=== PATIENT | female | born 1965 | race Caucasian/White ===

== ENCOUNTER 2017-11-30 09:19 | Observation (INO) ==
[2017-11-30] MEDS ORDERED: Ondansetron 4 MG/2 ML VIAL IVP PRN (13:54)
[2017-11-30] MEDS ORDERED: *HR* Promethazine 25 MG/ML VIAL IVP PRN (13:54)
[2017-11-30] MEDS ORDERED: *HR* HYDROcodone/Acet 5/325 mg TABLET PO PRN (13:54)
[2017-11-30] MEDS ORDERED: Naloxone 0.4 MG/ML INJ IVP PRN (13:54)
--- NOTE | 2017-11-30 16:03 | Internal Med History&Physical ---
Date of Encounter: 11/30/17 Time of Encounter: 13:00 Internal Medicine - H&P: HPI Chief complaint: Chest pain Admitted From: Emergency Dept Plans for Post Hospital Care: Home History of present illness: Ms. Andrews is a 52 year old female with known past medical history of GERD, chronic tobacco dependent and anxiety who presented to [place] emergency room with burning sensation her epigastric as well as left chest wall region since this morning. Patient stated that chest pain improved with Nitro. She denied of any previous heart problems/cardiac workup. Patient was sent to our hospital for further evaluation and possible stress test. When I examined the patient she is alert, awake, oriented X3. She denied of any more active chest pain now. Patient did mention father had a TN when he was in his 30s Past Med Surg Social Fam HX - Past Medical History Medical history: GERD, kidney stones Additional medical history: Heart murmur as a child Psychiatric history: anxiety - Past Surgical History Surgical History: appendectomy, , cholecystectomy Additional surgical history: Lithotripsy at least 5 times - Social History Smoking Status: Current every day smoker Packs per day: 1.5 Smokeless Tobacco Status: No Alcohol use: none Drug use: none - Family History Father Living Status: Age at : 53 Cause of : Cancer Hx Family Cardiac Disorders: Yes (First TN in 30s) Hx Family Respiratory Disorders: No Hx Family Cancer: Yes (Colon) Hx Family GI Disorders: No Hx Family Genitourinary Disorders: No Hx Family Endocrine Disorder: No Hx Family Musculoskeletal Disorders: No Internal Medicine - H&P: Meds Omeprazole [PriLOSEC] 20 mg PO DAILY 11/30/17 [History] 3 Allergy/AdvReac Type Severity Reaction Status Date / Time tramadol Allergy Nausea Verified 07/11/15 18:38 All Systems PM: A 10-system review of systems was performed and is negative for pertinent findings except as documented above in the HPI. Review of systems: All the systems are reviewed everything is benign except the systems and symptoms I mentioned in the history of present illness - Constitutional Vitals: Temp Pulse Resp BP Pulse Ox 98.0 F 54 17 121/77 95 11/30/17 14:56 11/30/17 14:56 11/30/17 14:56 11/30/17 14:56 11/30/17 14:56 General appearance: Present: A&O X 3, no acute distress, answers questions appropriately - Head Head exam: Present: atraumatic, normal inspection - Neck Neck exam general surgery: Present: supple - Respiratory Respiratory exam: Present: decreased breath sounds. Absent: rales, respiratory distress, rhonchi, wheezes - Cardiovascular Cardiovascular exam: Present: RRR, +S1, +S2. Absent: diastolic murmur, gallop, rubs, systolic murmur - GI/Abdominal GI/Abdominal exam: Present: normal bowel sounds, soft. Absent: rebound, rigid, tenderness - Extremities Exam Extremities exam: Absent: calf tenderness, pedal edema, tenderness - Back Exam Back exam: Absent: CVA tenderness (L), CVA tenderness (R) - Neurological Exam Neurological exam: Present: alert, oriented X3 - Psychiatric Psychiatric exam: Present: normal affect, normal mood - Skin Skin exam: Absent: rash Internal Med - H&P Results - Labs Labs: Cardiac Enzymes 11/30/17 Range/Units 14:11 Troponin I < 0.03 (< 0.04) ng/mL - Assessment and plan (1) Chest pain Current Visit: No Status: Acute Assessment and plan: Will admit the pt into Tele for observation Will place pt on medical instrument technician check serial troponin so far negative troponin EKG reviewed by myself.. Showed normal sinus rhythm with no acute ST T changes will start pt on ASA and Nitro PRN for pain Will check FLP in AM Since pt is high risk for ACS, exercise stress EKG in AM Qualifiers: Chest pain type: unspecified Qualified Code(s): R07.9 - Chest pain, unspecified (2) Anxiety Current Visit: Yes Status: Acute (3) GERD (gastroesophageal reflux disease) Current Visit: Yes Status: Acute Assessment and plan: her chest pain seems to atypical and mostly GERD resumed home medication PPI Qualifiers: Esophagitis presence: without esophagitis Qualified Code(s): K21.9 - Gastro -esophageal reflux disease without esophagitis (4) Tobacco dependence Current Visit: Yes Status: Acute Assessment and plan: Counseled to quit smoking placed on nicotine patch (5) Morbid obesity with BMI of 40.0-44.9, adult Current Visit: Yes Status: Acute Assessment and plan: Counseled to lose weight - Time Spent With Patient Total time spent is greater than 50% in coordination of care (as documented) at patient's floor/unit and/or counseling patient:
[2017-11-30] MEDS: Nicotine 21 MG PATCH.TD24 TD SCH (16:30)
[2017-11-30] MEDS: Acetaminophen 325 MG TABLET PO PRN (17:02)
[2017-12-01 02:09] LABS: Basophils # 0.1 K/mcL (0.0-0.2); Basophils % 0.5 %; Eosinophils # 0.3 K/mcL (0.0-0.6); Eosinophils % 2.7 %; Hematocrit 38.6 % (35.3-44.9); Hemoglobin 12.6 g/dL (11.5-15.4); Immature Granulocytes % 0.3 % (0-4); Lymphocytes # 3.8 K/mcL (0.6-4.6); Lymphocytes % 36.2 %; Mean Corpuscular HGB Conc 32.6 g/dL (31.6-35.5); Mean Corpuscular Hemoglobin 27.2 pg (28.0-33.3); Mean Corpuscular Volume 83.2 fL (83.0-100.0); Mean Platelet Volume 10.3 fL (9.4-12.4); Monocytes # 0.6 K/mcL (0.0-1.3); Monocytes % 5.9 %; Neutrophils # 5.8 K/mcL (1.6-8.9); Platelet Count 210 K/mcL (140-400); Red Blood Count 4.64 M/mcL (3.82-4.97); Red Cell Distribution Width 14.6 % (11.5-14.5); Segmented Neutrophils % 54.4 %
[2017-12-01 02:28] LABS: BUN/Creatinine Ratio 20 (6-26); Blood Urea Nitrogen 17 mg/dL (6-20); Calcium 9.1 mg/dL (8.6-10.3); Carbon Dioxide 27 mEq/L (23-29); Chloride 108 mEq/L (98-107); Chol/HDL Ratio 6.3 (0-4.9); Cholesterol 190 mg/dL (< 200); Glucose 115 mg/dL (70-105); HDL Cholesterol 30 mg/dL (40-59); LDL Cholesterol,Calculated 115 mg/dL (0-99); Osmolality,Calculated 288 (280-300); Potassium 3.9 mEq/L (3.5-5.1); Sodium 138 mEq/L (136-145); Triglycerides 223 mg/dL (< 150); eGFR For African Americans > 60 (> 60); eGFR For Non-African Americans > 60 (> 60)
[2017-12-01] MEDS ORDERED: Regadenoson 0.4 MG/5 ML SYRINGE IVP ONE (08:12)
[2017-12-01] MEDS: Nicotine 21 MG PATCH.TD24 TD SCH (10:54)
[2017-12-01] MEDS: Aspirin Enteric Coated 81 MG Tablet PO SCH (10:54)
--- NOTE | 2017-12-01 12:03 | Internal Med Progress Note ---
Date of Encounter: 12/01/17 Time of Encounter: 11:58 - Assessment and plan (1) Chest pain Current Visit: No Status: Inactive Assessment and plan: Patient presented with left-sided chest pain as well as pain in her epigastrium which began yesterday. Pain resolved with 1 sublingual nitroglycerin Continuing to report a mild burning discomfort in his left chest and a Gastro No prior history of previous heart attacks, no prior cardiac workup Risk factors include obesity, and family history of MIs at a young age father had heart attack at age 30 Patient being admitted for observation for ACS rule out We will need to do a stress test, first day of stress test completed today. Patient denied any chest pain or shortness of breath during stress this morning Obtain TTE, serial troponins have been unremarkable ECG reviewed myself, normal sinus rhythm with no acute ST or T changes concerning for ischemia Patient on daily aspirin now, started during the stay, continue nitroglycerin when necessary for pain Lipid profile returned finding hyperlipidemia, part start patient on daily statin now Remains hemodynamically stable Continuous telemetry Qualifiers: Chest pain type: unspecified Qualified Code(s): R07.9 - Chest pain, unspecified (2) Anxiety Current Visit: Yes Status: Acute Assessment and plan: History of anxiety, does not appear anxious this time (3) GERD (gastroesophageal reflux disease) Current Visit: Yes Status: Acute Assessment and plan: her chest pain seems to atypical and mostly GERD Continue PPI Qualifiers: Esophagitis presence: without esophagitis Qualified Code(s): K21.9 - Gastro -esophageal reflux disease without esophagitis (4) Tobacco dependence Current Visit: Yes Status: Acute Assessment and plan: Daily smoker, does not wish to quit Counseled to quit smoking placed on nicotine patch (5) Morbid obesity with BMI of 40.0-44.9, adult Current Visit: Yes Status: Acute Assessment and plan: Status i-STAT modification, weight loss and heart healthy diet - Time Spent With Patient Total time spent is greater than 50% in coordination of care (as documented) at patient's floor/unit and/or counseling patient: 25 - 35 minutes - Subjective Interval history: Admitted for chest pain rule out. No acute changes overnight. Patient seen and examined at bedside today. Reporting that her left-sided chest pain/ burning sensation has slightly improved. Denied any chest pain during this morning stress test. - Constitutional Vitals: Temp Pulse Resp BP Pulse Ox 98.1 F 62 14 138/81 96 12/01/17 11:22 12/01/17 11:22 12/01/17 11:22 12/01/17 11:22 12/01/17 11:22 General appearance: Present: A&O X 3, no acute distress, answers questions appropriately - Head Head exam: Present: atraumatic, normocephalic - Eye Eye exam: Present: PERRL, conjuntiva pink, sclera anicteric Pupils: Present: PERRL - Neck Neck exam general surgery: Present: supple, trachea midline. Absent: lymphadenopathy - Respiratory Respiratory exam: Present: CTAB. Absent: accessory muscle use, rales, rhonchi, wheezes - Cardiovascular Cardiovascular exam: Present: RRR, +S1, +S2. Absent: diastolic murmur, gallop, rubs, systolic murmur - GI/Abdominal GI/Abdominal exam: Present: normal bowel sounds, soft, no peritoneal signs. Absent: distended, tenderness - Extremities Exam Extremities exam: Present: warm, radial pulses palpable and symmetrical. Absent : calf tenderness, cyanotic, pedal edema - Neurological Exam Neurological exam: Present: CN II-XII intact, oriented X3, no focal deficits. Absent: pronater drift, facial droop, speech deficit - Skin Skin exam: Present: dry, intact Internal Medicine: Result - Labs CBC & Chem 7: 12/01/17 01:54 12/01/17 01:54 Labs: Short CBC 12/01/17 Range/Units 01:54 WBC 10.6 (4.3-11.1) K/mcL Hgb 12.6 (11.5-15.4) g/dL Hct 38.6 (35.3-44.9) % Plt Count 210 (140-400) K/mcL Neutrophils # 5.8 (1.6-8.9) K/mcL BMP 12/01/17 01:54 Sodium 138 Potassium 3.9 Chloride 108 H Carbon Dioxide 27 BUN 17 Creatinine 0.84 Glucose 115 H Calcium 9.1 Cardiac Enzymes 11/30/17 11/30/17 12/01/17 Range/Units 14:11 20:10 01:54 Troponin I < 0.03 < 0.03 < 0.03 (< 0.04) ng/mL Consult Discharge Plan - Plan Referrals: Raya Pierre MD [Primary Care Provider] -
[2017-12-01] MEDS: Acetaminophen 325 MG TABLET PO PRN (23:58)
--- NOTE | 2017-12-02 05:53 | Internal Med Progress Note ---
Date of Encounter: 12/02/17 Time of Encounter: 05:51 - Assessment and plan (1) Chest pain Current Visit: Yes Status: Inactive Assessment and plan: Patient presented with left-sided chest pain as well as pain in her epigastrium which began yesterday With epigastric pain radiating to left chest pain could be of GI origin. However, we will continue to rule out ACS as discomfort did improve with sl nitro History patient continued to report mild burning sensation in the epigastrium and left chest. However, today denies any chest discomfort or epigastric burning Troponins negative 3, ECG reviewed by myself with NSR and no acute ST or T- wave changes concerning for ischemia No prior history of previous heart attacks, no prior cardiac workup Risk factors include obesity, and family history of MIs at a young age father had heart attack at age 30 Completing a 2 day stress test, second stress test tomorrow-follow results TTE ordered-awaiting completion-follow results -Continue daily aspirin, when necessary SL nitro, continue statin Qualifiers: Chest pain type: unspecified Qualified Code(s): R07.9 - Chest pain, unspecified (2) Anxiety Current Visit: Yes Status: Acute Assessment and plan: History of anxiety, does not appear anxious this time (3) GERD (gastroesophageal reflux disease) Current Visit: Yes Status: Acute Assessment and plan: her chest pain seems to atypical and mostly GERD Continue PPI Qualifiers: Esophagitis presence: without esophagitis Qualified Code(s): K21.9 - Gastro -esophageal reflux disease without esophagitis (4) Tobacco dependence Current Visit: Yes Status: Acute Assessment and plan: Daily smoker, does not wish to quit Counseled to quit smoking placed on nicotine patch (5) Morbid obesity with BMI of 40.0-44.9, adult Current Visit: Yes Status: Acute Assessment and plan: Discussed lifestyle modifications weight loss and heart healthy diet (6) HLD (hyperlipidemia) Current Visit: Yes Status: Acute Assessment and plan: Statin Qualifiers: Hyperlipidemia type: mixed hyperlipidemia Qualified Code(s): E78.2 - Mixed hyperlipidemia - Time Spent With Patient Total time spent is greater than 50% in coordination of care (as documented) at patient's floor/unit and/or counseling patient: 25 - 35 minutes - Subjective Interval history: Admitted for chest pain rule out. No acute changes overnight. Patient seen and examined at bedside today. Reporting that her left-sided chest pain/ burning sensation has resolved. - Constitutional Vitals: Temp Pulse Resp BP Pulse Ox 97.9 F 67 14 108/69 95 12/02/17 04:17 12/02/17 04:17 12/02/17 04:17 12/02/17 04:17 12/02/17 04:17 General appearance: Present: A&O X 3, no acute distress, answers questions appropriately - Head Head exam: Present: atraumatic, normocephalic - Eye Eye exam: Present: PERRL, conjuntiva pink, sclera anicteric Pupils: Present: PERRL - Neck Neck exam general surgery: Present: supple, trachea midline. Absent: lymphadenopathy - Respiratory Respiratory exam: Present: CTAB. Absent: accessory muscle use, rales, rhonchi, wheezes - Cardiovascular Cardiovascular exam: Present: RRR, +S1, +S2. Absent: diastolic murmur, gallop, rubs, systolic murmur - GI/Abdominal GI/Abdominal exam: Present: normal bowel sounds, soft, no peritoneal signs. Absent: distended, tenderness - Extremities Exam Extremities exam: Present: warm, radial pulses palpable and symmetrical. Absent : calf tenderness, cyanotic, pedal edema - Neurological Exam Neurological exam: Present: CN II-XII intact, oriented X3, no focal deficits. Absent: pronater drift, facial droop, speech deficit - Skin Skin exam: Present: dry, intact Internal Medicine: Result - Labs CBC & Chem 7: 12/01/17 01:54 12/01/17 01:54 Consult Discharge Plan - Plan Referrals: Raya Pierre MD [Primary Care Provider] -
[2017-12-02] MEDS: Aspirin Enteric Coated 81 MG Tablet PO SCH (09:23)
[2017-12-02] MEDS: Nicotine 21 MG PATCH.TD24 TD SCH (09:25)
[2017-12-03] MEDS: Aspirin Enteric Coated 81 MG Tablet PO SCH (08:11)
[2017-12-03 15:08] VITALS: BP 117/77
--- NOTE | 2017-12-03 15:43 | Discharge Summary ---
- NOTES TO OUTPATIENT PROVIDER Notes to Outpatient Provider: admited for CP r/o, workup unremarkable, stress test negative for ischemia. No return of CP during this admission, uneventful hospital course. Instructed to f/u with PCP within 1-week of D/C. Orders not resulted at time of discharge: Pending orders 12/01/17 07:48 NM tanya perf SPECT multi [NM] Routine Date of Encounter: 12/03/17 Time of Encounter: 15:41 - Discharge Diagnosis (1) Chest pain Priority: Primary Status: Inactive Assessment and Plan: Patient presented with left-sided chest pain as well as pain in her epigastrium which began yesterday With epigastric pain radiating to left chest pain could be of GI origin. However, we will continue to rule out ACS as discomfort did improve with sl nitro History patient continued to report mild burning sensation in the epigastrium and left chest. However, today denies any chest discomfort or epigastric burning Troponins negative 3, ECG reviewed by myself with NSR and no acute ST or T- wave changes concerning for ischemia No prior history of previous heart attacks, no prior cardiac workup Risk factors include obesity, and family history of MIs at a young age father had heart attack at age 30 Completing a 2 day stress test, second stress test tomorrow-follow results TTE- LVEF 60%. Mild left ventricular diastolic dysfunction. Normal right ventricular structure and function. No significant valvular dysfunction. No pulmonary hypertension. -Start daily aspirin, and statin -counseled on weight loss and lifestyle modification -counseled on the need to quit smoking Qualifiers: Chest pain type: unspecified Qualified Code(s): R07.9 - Chest pain, unspecified (2) Anxiety Priority: Secondary Status: Acute Assessment and Plan: History of anxiety, does not appear anxious this time (3) GERD (gastroesophageal reflux disease) Priority: Secondary Status: Acute Assessment and Plan: her chest pain seems to atypical and mostly GERD Continue PPI Qualifiers: Esophagitis presence: without esophagitis Qualified Code(s): K21.9 - Gastro -esophageal reflux disease without esophagitis (4) Tobacco dependence Priority: Secondary Status: Acute Assessment and Plan: Daily smoker, does not wish to quit Counseled to quit smoking placed on nicotine patch (5) Morbid obesity with BMI of 40.0-44.9, adult Priority: Secondary Status: Acute Assessment and Plan: Discussed lifestyle modifications weight loss and heart healthy diet (6) HLD (hyperlipidemia) Priority: Secondary Status: Acute Assessment and Plan: Statin Qualifiers: Hyperlipidemia type: mixed hyperlipidemia Qualified Code(s): E78.2 - Mixed hyperlipidemia Hospital course: Ms. Andrews is a 52 year old female Please see assessment and plan for hospital course Discharge discussed with: patient - Time Spent with Patient Total time spent providing and/or coordinating discharge services: Less than 30 minutes - Discharge Medications Prescriptions: Aspirin Enteric Coated [Aspirin EC] 81 mg PO DAILY 30 Days #30 tablet. Simvastatin [Zocor] 40 mg PO HS 30 Days #30 tablet Home Medications: Omeprazole [PriLOSEC] 20 mg PO DAILY 11/30/17 [History] Aspirin Enteric Coated [Aspirin EC] 81 mg PO DAILY 30 Days #30 tablet. [Rx] Simvastatin [Zocor] 40 mg PO HS 30 Days #30 tablet 12/03/17 [Rx] Allergies/Adverse Reactions: 3 Allergy/AdvReac Type Severity Reaction Status Date / Time tramadol Allergy Nausea Verified 07/11/15 18:38 Date of admission: 11/30/17 11:23 Primary care physician: Raya Pierre, Discharging clinician: Cristi Johnson Anticipated date of discharge: 12/03/17 - Constitutional Vitals: Temp Pulse Resp BP Pulse Ox 98.3 F 69 18 117/77 98 12/03/17 15:06 12/03/17 15:06 12/03/17 15:06 12/03/17 15:06 12/03/17 15:06 General appearance: Present: A&O X 3, no acute distress, answers questions appropriately - Head Head exam: Present: atraumatic, normocephalic - Eye Eye exam: Present: PERRL, conjuntiva pink, sclera anicteric Pupils: Present: PERRL - Neck Neck exam general surgery: Present: supple, trachea midline. Absent: lymphadenopathy - Respiratory Respiratory exam: Present: CTAB. Absent: accessory muscle use, rales, rhonchi, wheezes - Cardiovascular Cardiovascular exam: Present: RRR, +S1, +S2. Absent: diastolic murmur, gallop, rubs, systolic murmur - GI/Abdominal GI/Abdominal exam: Present: normal bowel sounds, soft, no peritoneal signs. Absent: distended, tenderness - Extremities Exam Extremities exam: Present: warm, radial pulses palpable and symmetrical. Absent : calf tenderness, cyanotic, pedal edema - Neurological Exam Neurological exam: Present: CN II-XII intact, oriented X3, no focal deficits. Absent: pronater drift, facial droop, speech deficit - Skin Skin exam: Present: dry, intact - Patient Status Disposition: Home, Self-Care Condition: Good Overall status at discharge: patient is back to baseline - Discharge Instructions Instructions: Cholesterol and Your Health (GEN), Low Sodium Diet (GEN) Follow Up With: Raya Pierre MD [Primary Care Provider] - - Diet and Activity Activity: resume usual activities as tolerated Diet: diabetic diet, low fat, low cholesterol
== END 2017-12-03 17:45 | disposition home or self-care (01) ==
LOC: 3BNU
PROVIDERS: ADMIT Family Medicine; ATTEND Family Medicine